=== PATIENT | female | born 1965 | race Caucasian/White ===

== ENCOUNTER 2022-09-24 21:57 | Emergency (ER) | payer OTHER ==
[~2022-09-24] VITALS: Ht 149.9 cm; Wt 60.5 kg
[~2022-09-24 21:57] MED LIST: NOCURR
[2022-09-25] MEDS ORDERED: PERTUSS(ACELL),DIPH,TET VAC/PF 0.5 ML SYRINGE IM. ONE (02:45)
[2022-09-25] MEDS ORDERED: CEPH-558 PO (03:10)
[2022-09-25 03:15] VITALS: BP 141/65
== END 2022-09-25 03:26 | disposition home or self-care (01) ==
LOC: EMS 22:10
DX: S80.811A Abrasion, right lower leg, initial encounter (principal); E11.9 Type 2 diabetes mellitus without complications; Z98.51 Tubal ligation status; Z98.890 Other specified postprocedural states; X58.XXXA Exposure to other specified factors, initial encounter; Y93.89 Activity, other specified; Y92.89 Other specified places as the place of occurrence of the external cause; Y99.8 Other external cause status
CPT/HCPCS: 90471; 90715; 99283